=== PATIENT | male | born 1995 | race Caucasian/White ===

== ENCOUNTER 2019-03-30 17:50 | Emergency (ER) | payer SELFPAY ==
[2019-03-30 19:20] VITALS: BP 134/93
[2019-03-30] MEDS ORDERED: cefTRIAXone VIAL(*) 1,000 MG VIAL IM ONE (19:27)
--- NOTE | 2019-03-30 19:31 | UC ---
Eye Complaint HPI - HPI Summary HPI Summary: Painful lumps on lower eyelids x1.5 week. Noticed LEFT upper eyelid red/sore and swelling yesterday. Goopy green discharge from both eyes. Denies changes in vision. Tried warm compress to eyes w/ no relief. - History of Current Complaint Chief Complaint: UCEye Stated Complaint: BI LAT EYE IRRITATION Time Seen by Provider: 03/30/19 19:26 Hx Obtained From: Patient Onset/Duration: Sudden Onset, Lasting Days Timing: Constant Severity Initially: Mild Severity Currently: Mild Pain Intensity: 2 Location of Injury: Eye Lid (lower), Eye Lid (upper) - Allergies/Home Medications Allergies/Adverse Reactions: Allergies Allergy/AdvReac Type Severity Reaction Status Date / Time amoxicillin Allergy Hives Verified 03/30/19 19:14 PMH/Surg Hx/FS Hx/Imm Hx Previously Healthy: Yes - Surgical History Surgical History: None - Family History Known Family History: Positive: Diabetes - MATERNAL GRANDMOTHER - Social History Alcohol Use: Weekly Substance Use Type: None Smoking Status (MU): Never Smoked Tobacco Review of Systems All Other Systems Reviewed And Are Negative: Yes Eyes: Positive: Drainage, Eye Redness, Other - lumps on eyelids Is Patient Immunocompromised?: No Physical Exam Triage Information Reviewed: Yes Appearance: Well-Appearing, Well-Nourished, Pain Distress Vital Signs: Initial Vital Signs Temp 98.6 F 03/30/19 19:14 Pulse 70 03/30/19 19:14 Resp 16 03/30/19 19:14 BP 134/93 03/30/19 19:14 Pulse Ox 100 03/30/19 19:14 Vital Signs Reviewed: Yes Eyes: Positive: Discharge, Other: - lumps on both lower eyelids, left eye erythema periorbital ENT: Positive: Pharynx normal, TMs normal Dental Exam: Normal Neck exam: Normal Respiratory Exam: Normal Cardiovascular Exam: Normal Abdominal Exam: Normal Musculoskeletal Exam: Normal Neurological Exam: Normal Psychological Exam: Normal Eye Complaint Course/Dx - Course Course Of Treatment: hx obtained, exam performed ,meds reviewed, treated for periorbital cellulitis - Differential Dx/Diagnosis Differential Diagnosis/HQI/PQRI: Conjunctivitis, Periorbital Cellulitis Provider Diagnosis: Chalazion of both eyes, Periorbital cellulitis of left eye Discharge ED - Sign-Out/Discharge Documenting (check all that apply): Patient Departure All imaging exams completed and their final reports reviewed: No Studies - Discharge Plan Condition: Stable Disposition: HOME Prescriptions: Sulfamethox/Trimethoprim DS* [Bactrim DS 800/160 TAB*] 1 tab PO BID #14 tab Patient Education Materials: Chalazion (ED), Periorbital Cellulitis in Adults ( ED) Referrals: No Primary Care Phys,NOPCP [Primary Care Provider] - Vinny Art MD [Medical Doctor] - Additional Instructions: 1. warm compresses multiple times a day to the eyes 2. Take the antibiotic as prescribed. 3. follow up if not improving with the eye doctor - Billing Disposition and Condition Condition: STABLE Disposition: Home
== END 2019-03-30 20:05 | disposition home or self-care (01) ==
LOC: UCCORT 17:50
DX: H00.11 Chalazion right upper eyelid (principal); H00.12 Chalazion right lower eyelid; H00.14 Chalazion left upper eyelid; H00.15 Chalazion left lower eyelid; L03.213 Periorbital cellulitis; Z88.0 Allergy status to penicillin
CPT/HCPCS: 99202; G0463

== ENCOUNTER 2019-04-11 17:33 | Emergency (ER) | payer SELFPAY ==
[2019-04-11 18:07] VITALS: BP 118/74
--- NOTE | 2019-04-11 19:14 | UC ---
Eye Complaint HPI - HPI Summary HPI Summary: Pt states he has been having a lump under left eye for a month and now has a small one under his right eye and on the top lid of the left eye. Pt was here 2 weeks ago for this and was given antibiotic ointment that he used for 7 days. Pt states he does not have pain and has minimal drainage. - History of Current Complaint Chief Complaint: UCEye Stated Complaint: EYE ISSUE Hx Obtained From: Patient Onset/Duration: Sudden Onset, Lasting Weeks Timing: Constant Severity Initially: Mild Severity Currently: Mild Pain Intensity: 0 Location of Injury: Eye Lid (lower) - Allergies/Home Medications Allergies/Adverse Reactions: Allergies Allergy/AdvReac Type Severity Reaction Status Date / Time amoxicillin Allergy Hives Verified 04/11/19 18:07 Home Medications: Home Medications NK [No Home Medications Reported] 04/11/19 [History Confirmed 04/11/19] PMH/Surg Hx/FS Hx/Imm Hx Previously Healthy: Yes - Surgical History Surgical History: None - Family History Known Family History: Positive: Diabetes - MATERNAL GRANDMOTHER - Social History Alcohol Use: Weekly Substance Use Type: None Smoking Status (MU): Never Smoked Tobacco Review of Systems All Other Systems Reviewed And Are Negative: Yes Eyes: Positive: Other - lump Is Patient Immunocompromised?: No Physical Exam Triage Information Reviewed: Yes Vital Signs: Initial Vital Signs Temp 97.8 F 04/11/19 18:01 Pulse 55 04/11/19 18:01 Resp 16 04/11/19 18:01 BP 118/74 04/11/19 18:01 Pulse Ox 100 04/11/19 18:01 Eyes: Positive: Conjunctiva Inflamed, Other: - bilateral chalazion Dental Exam: Normal Neck exam: Normal Respiratory Exam: Normal Respiratory: Positive: Chest non-tender, Lungs clear, Normal breath sounds Cardiovascular Exam: Normal Abdominal Exam: Normal Musculoskeletal Exam: Normal Neurological Exam: Normal Psychological Exam: Normal Skin Exam: Normal Eye Complaint Course/Dx - Course Course Of Treatment: hx obtained, exam performed ,meds reviewed, - Differential Dx/Diagnosis Provider Diagnosis: Chalazion, Conjunctivitis Discharge ED - Sign-Out/Discharge Documenting (check all that apply): Patient Departure All imaging exams completed and their final reports reviewed: No Studies - Discharge Plan Condition: Stable Disposition: HOME Patient Education Materials: Chalazion (ED) Referrals: No Primary Care Phys,NOPCP [Primary Care Provider] - - Billing Disposition and Condition Condition: STABLE Disposition: Home
--- NOTE | 2019-04-11 19:32 | UC ---
Eye Complaint HPI - HPI Summary HPI Summary: Pt states he has been having a lump under left eye for a month and now has a small one under his right eye and on the top lid of the left eye. Pt was here 2 weeks ago for this and was given antibiotic ointment that he used for 7 days. Pt states he does not have pain and has minimal drainage. - History of Current Complaint Chief Complaint: UCEye Stated Complaint: EYE ISSUE Time Seen by Provider: 04/11/19 19:31 Hx Obtained From: Patient Onset/Duration: Sudden Onset, Lasting Weeks Timing: Constant Severity Initially: Mild Severity Currently: Mild Pain Intensity: 0 Location of Injury: Eye Lid (lower) - Allergies/Home Medications Allergies/Adverse Reactions: Allergies Allergy/AdvReac Type Severity Reaction Status Date / Time amoxicillin Allergy Hives Verified 04/11/19 18:07 Home Medications: Home Medications NK [No Home Medications Reported] 04/11/19 [History Confirmed 04/11/19] PMH/Surg Hx/FS Hx/Imm Hx Previously Healthy: Yes - Surgical History Surgical History: None - Family History Known Family History: Positive: Diabetes - MATERNAL GRANDMOTHER - Social History Alcohol Use: Weekly Substance Use Type: None Smoking Status (MU): Never Smoked Tobacco Review of Systems All Other Systems Reviewed And Are Negative: Yes Eyes: Positive: Other - lump Physical Exam Triage Information Reviewed: Yes Vital Signs: Initial Vital Signs Temp 97.8 F 04/11/19 18:01 Pulse 55 04/11/19 18:01 Resp 16 04/11/19 18:01 BP 118/74 04/11/19 18:01 Pulse Ox 100 04/11/19 18:01 Eyes: Positive: Conjunctiva Clear, Other: - bilateral chalazion Dental Exam: Normal Neck exam: Normal Respiratory Exam: Normal Respiratory: Positive: Chest non-tender, Lungs clear, Normal breath sounds Cardiovascular Exam: Normal Abdominal Exam: Normal Musculoskeletal Exam: Normal Neurological Exam: Normal Psychological Exam: Normal Skin Exam: Normal Eye Complaint Course/Dx - Course Course Of Treatment: hx obtained, exam performed, meds reviewed, patients periorbital cellulits has cleared, he still has bilateral chalazion. referred to opthamology - Differential Dx/Diagnosis Provider Diagnosis: Chalazion Discharge ED - Sign-Out/Discharge Documenting (check all that apply): Patient Departure All imaging exams completed and their final reports reviewed: No Studies - Discharge Plan Condition: Stable Disposition: HOME Patient Education Materials: Marielle (ED) Referrals: No Primary Care Phys,NOPCP [Primary Care Provider] - Geni ZUNIGA,Rebecca [Medical Doctor] - Additional Instructions: 1. continue with hot compresses and follow up with the DR Arechiga. - Billing Disposition and Condition Condition: STABLE Disposition: Home - Attestation Statements Provider Attestation: I was available for consult. This patient was seen by the [facility]. The patient was not presented to, seen by, or examined by me. -Cristina
== END 2019-04-11 19:45 | disposition home or self-care (01) ==
LOC: UCCORT 17:33
DX: H00.12 Chalazion right lower eyelid (principal); H00.14 Chalazion left upper eyelid; H10.9 Unspecified conjunctivitis; Z88.0 Allergy status to penicillin
CPT/HCPCS: 99211; G0463